=== PATIENT | female | born 2000 | race Caucasian/White ===

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

== ENCOUNTER 2020-05-28 22:33 | Emergency (ER) | payer OTHER ==
[~2020-05-28] VITALS: Ht 167 cm; Wt 75.0 kg
[~2020-05-28 22:33] MED LIST changes: +ACYC400T PO; +DOCU100C37 PO; +FERR325T18 PO; +IBUP-844 PO; +PREN1TAB79 PO
[2020-05-28 23:05] LABS: HEMOGLOBIN 14.7 g/dL (11.5-16.0); MEAN PLATELET VOLUME 9.5 fL (9.0-12.2); WHITE BLOOD COUNT 7.6 10^3/uL (4.3-11.0)
[2020-05-28 23:09] LABS: ALBUMIN 4.6 GM/DL (3.2-4.5); CHLORIDE 106 MMOL/L (98-107); POTASSIUM 3.5 MMOL/L (3.6-5.0); SODIUM 139 MMOL/L (135-145)
[2020-05-28 23:10] LABS: CALCIUM 9.5 MG/DL (8.5-10.1)
[2020-05-28 23:11] LABS: GLUCOSE 93 MG/DL (70-105)
[2020-05-28 23:12] LABS: CARBON DIOXIDE 22 MMOL/L (21-32); TOTAL PROTEIN 8.1 GM/DL (6.4-8.2)
[2020-05-28 23:13] LABS: BILIRUBIN,TOTAL 0.5 MG/DL (0.1-1.0)
[2020-05-28 23:15] LABS: ALKALINE PHOSPHATASE 64 U/L (40-136); CREATININE SERUM 0.93 MG/DL (0.60-1.30); GFR ESTIMATED > 60
[2020-05-28 23:16] LABS: BUN/CREATININE RATIO 9
[2020-05-28 23:17] LABS: BILIRUBIN,DIRECT 0.2 MG/DL (0.0-0.3); BILIRUBIN,INDIRECT 0.3 MG/DL
[2020-05-28 23:18] LABS: ALANINE AMINOTRANSFERASE 16 U/L (0-55)
--- NOTE | 2020-05-28 23:24 | NUR ---
PT RESTING QUIETLY, NO C/O VOICED.
--- NOTE | 2020-05-28 23:34 | NUR ---
AILEEN NUNEZ DEPUTY HERE TO TALK W/ PT
[2020-05-29] MEDS ORDERED: KETOROLAC 30 MG/ML VIAL IVP STA (00:03)
[2020-05-29] MEDS ORDERED: KETOROLAC 30 MG/ML VIAL ONE (00:05)
[2020-05-29 00:16] LABS: BILIRUBIN,URINE NEGATIVE (NEGATIVE); CLARITY,URINE CLEAR; COLOR,URINE YELLOW; GLUCOSE, URINE (UA) NEGATIVE (NEGATIVE); KETONES,URINE NEGATIVE (NEGATIVE); LEUKOCYTE ESTERASE ,URINE NEGATIVE (NEGATIVE); NITRITE,URINE NEGATIVE (NEGATIVE); PROTEIN,URINE NEGATIVE (NEGATIVE)
[2020-05-29 00:24] LABS: RBC,URINE 0-2 /HPF
[2020-05-29 00:26] LABS: BACTERIA,URINE LARGE /HPF
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
[2020-05-29 00:34] VITALS: BP 125/72
--- NOTE | 2020-05-29 00:34 | NUR ---
PT DISCHARGED TO HOME W/ INSTR. PT TO F/U W/ PCP ET RETURN IF SYMPTOMS CHANGE OR GET WROSE. UNDERSTANDING VOICED.
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
== END 2020-05-29 00:34 | disposition home or self-care (01) ==
LOC: EDUNIT# 22:34 → ER 22:35
DX: S80.02XA Contusion of left knee, initial encounter (principal); S60.511A Abrasion of right hand, initial encounter; S09.90XA Unspecified injury of head, initial encounter; Z83.3 Family history of diabetes mellitus; V89.2XXA Person injured in unspecified motor-vehicle accident, traffic, initial encounter
CPT/HCPCS: 70450; 71045; 72125; 80048; 80076; 81000; 84703; 85027; 86850; 86900; 86901; 87077; 87088; 99284; G0480; 36415; 80320

== ENCOUNTER 2020-09-30 17:41 | Emergency (ER) | payer OTHER ==
[~2020-09-30] VITALS: Ht 165.1 cm; Wt 79.4 kg
[2020-09-30 19:01] LABS: BASOPHILS % (AUTO) 0 % (0-10); EOSINOPHILS # (AUTO) 0.1 10^3/uL (0.0-0.3); EOSINOPHILS % (AUTO) 1 % (0-10); HEMATOCRIT 40 % (35-52); HEMOGLOBIN 13.6 g/dL (11.5-16.0); LYMPHOCYTES # (AUTO) 1.9 10^3/uL (1.0-4.0); LYMPHOCYTES % (AUTO) 20 % (12-44); MEAN CORPUSCULAR HEMOGLOBIN 29 pg (25-34); MEAN CORPUSCULAR HGB CONC 34 g/dL (32-36); MEAN CORPUSCULAR VOLUME 83 fL (80-99); MEAN PLATELET VOLUME 9.2 fL (9.0-12.2); MONOCYTES # (AUTO) 0.7 10^3/uL (0.0-1.0); MONOCYTES % (AUTO) 7 % (0-12); NEUTROPHILS # (AUTO) 6.7 10^3/uL (1.8-7.8); NEUTROPHILS % (AUTO) 71 % (42-75); PLATELET COUNT 263 10^3/uL (130-400); WHITE BLOOD COUNT 9.4 10^3/uL (4.3-11.0)
[2020-09-30 19:10] LABS: ALBUMIN 3.9 GM/DL (3.2-4.5); CHLORIDE 106 MMOL/L (98-107); POTASSIUM 3.7 MMOL/L (3.6-5.0); SODIUM 135 MMOL/L (135-145)
[2020-09-30 19:11] LABS: CALCIUM 9.4 MG/DL (8.5-10.1)
[2020-09-30 19:11] LABS: BILIRUBIN,URINE NEGATIVE (NEGATIVE); CLARITY,URINE CLEAR; COLOR,URINE YELLOW; GLUCOSE, URINE (UA) NEGATIVE (NEGATIVE); KETONES,URINE NEGATIVE (NEGATIVE); LEUKOCYTE ESTERASE ,URINE TRACE (NEGATIVE); NITRITE,URINE NEGATIVE (NEGATIVE); PROTEIN,URINE NEGATIVE (NEGATIVE)
[2020-09-30 19:12] LABS: GLUCOSE 85 MG/DL (70-105); TOTAL PROTEIN 7.3 GM/DL (6.4-8.2)
[2020-09-30 19:13] LABS: CARBON DIOXIDE 21 MMOL/L (21-32)
[2020-09-30 19:14] LABS: BILIRUBIN,TOTAL 0.3 MG/DL (0.1-1.0)
[2020-09-30 19:16] LABS: ALKALINE PHOSPHATASE 47 U/L (40-136); CREATININE SERUM 0.74 MG/DL (0.60-1.30); GFR ESTIMATED > 60
[2020-09-30 19:17] LABS: BUN/CREATININE RATIO 8
--- NOTE | 2020-09-30 19:18 | ED GU-Female ---
General Chief Complaint: OB < 20 WEEKS Stated Complaint: BLEEDING; 10 WKS PRGT Nursing Triage Note: PT AMB TO TRIAGE WITH COMPLAINT OF VAGINAL BLEEDING AND LIGHT CRAMPING THAT STARTED TODAY. PT IS APPROX 10 WEEKS . LMP 07/17/2020. STATES IS WITH TWINS THAT WAS CONFIRMED BY DR VELÁZQUEZ AND WAS REFERRED ON TO DR RICO BUT HAS NOT SEEN HIM IN OFFICE. Nursing Sepsis Screen: No Definite Risk Source: patient Exam Limitations: no limitations History of Present Illness Date Seen by Provider: Sep 30, 2020 Time Seen by Provider: 18:24 Initial Comments 20-year-old female who presents to the emergency room with complaints of light vaginal bleeding with some pelvic cramping that started today. The patient is approximately 10 weeks and her last menstrual period was 07/17/2020. She reports that she is with twins and has referral into Dr. RICO but has not been to see him in office. She reports that she has not saturated a pad all day long and compared this to a light period. Timing/Duration: this afternoon Severity/Quality: cramping Associated Symptoms: denies symptoms Allergies and Home Medications Allergies Coded Allergies: No Known Drug Allergies (Unverified , 08/13/19) Home Medications Docusate Sodium 100 Mg Capsule, 100 MG PO BID Prescribed by: DEBBIE VELÁZQUEZ on 08/14/19 1237 Ferrous Sulfate 325 Mg Tablet, 325 MG PO DAILY@0700 Prescribed by: DEBBIE VELÁZQUEZ on 08/14/19 1237 Ibuprofen 600 Mg Tablet, 600 MG PO Q6HR PRN for PAIN-MODERATE (5-7) Prescribed by: DEBBIE VELÁZQUEZ on 08/14/19 1237 Vit W-Ca,Fe,FA(<1 mg) 1 Each Tablet, 1 EACH PO DAILY, (Reported) Patient Home Medication List Home Medication List Reviewed: Yes Review of Systems Review of Systems Constitutional: see HPI; No chills, No fever Genitourinary: see HPI, pain (Pelvic pain), other (Vaginal bleeding) : Yes LMP: Jul 24, 2020 All Other Systemes Reviewed Negative Unless Noted: Yes Past Mpzywsn-Nbzytc-Tgghzt Hx Past Med/Social Hx: Reviewed Nursing Past Med/Soc Hx Patient Social History Alcohol Use: Denies Use Smoking Status: Never a Smoker 2nd Hand Smoke Exposure: No Recent Infectious Disease Expo: No Recent Hopitalizations: No Immunizations Up To Date Tetanus Booster (TDap): Less than 5yrs PED Vaccines UTD: Yes Date of Influenza Vaccine: May 11, 2019 Seasonal Allergies Seasonal Allergies: No Past Medical History Surgeries: No Respiratory: No Cardiac: No Neurological: No Hx : 2 Hx Para: 1 Female Reproductive Disorders: Denies Sexually Transmitted Disease: Yes (herpes) HIV/AIDS: No Genitourinary: No Gastrointestinal: No Musculoskeletal: No Endocrine: No HEENT: No Cancer: No Psychosocial: No Integumentary: No Blood Disorders: No Adverse Reaction/Blood Tranf: No Family Medical History Reviewed Nursing Family Hx Diabetes mellitus 19 MOTHER No Pertinent Family Hx Physical Exam Vital Signs Vital Signs - First Documented 09/30/20 18:16 Temp 37.0 Pulse 83 Resp 16 B/P (MAP) 108/66 (80) Pulse Ox 97 O2 Delivery Room Air Capillary Refill : Less Than 3 Seconds Height, Weight, BMI Height: 5'5.00" Weight: 156lbs. oz. 70.928992ip; 29.00 BMI Method:Stated General Appearance: WD/WN, no apparent distress Cardiovascular: normal peripheral pulses, regular rate, rhythm, no edema, no gallop, no JVD, no murmur Respiratory: chest non-tender, lungs clear, normal breath sounds, no respiratory distress, no accessory muscle use, respiratory distress Gastrointestinal: normal bowel sounds, non tender, soft, no organomegaly, no pulsatile mass, abnormal bowel sounds Extremities: normal range of motion, non-tender, no pedal edema, no calf tenderness, normal capillary refill Neurologic/Psychiatric: alert, normal mood/affect, oriented x 3 Skin: normal color, warm/dry Lymphatic: no adenopathy Progress/Results/Core Measures Suspected Sepsis Recent Fever Within 48 Hours: No Infection Criteria Present: None New/Unexplained Altered Menta: No Sepsis Screen: No Definite Risk SIRS Temperature: Pulse: 83 Respiratory Rate: 16 Laboratory Tests 09/30/20 18:48: White Blood Count 9.4 Blood Pressure 108 /66 Mean: 80 Laboratory Tests 09/30/20 18:48: Creatinine 0.74, Platelet Count 263, Total Bilirubin 0.3 Results/Orders Lab Results Laboratory Tests Test 09/30/20 18:48 09/30/20 18:57 Range/Units White Blood Count 9.4 4.3-11.0 10^3/uL Red Blood Count 4.77 3.80-5.11 10^6/uL Hemoglobin 13.6 11.5-16.0 g/dL Hematocrit 40 35-52 % Mean Corpuscular Volume 83 80-99 fL Mean Corpuscular Hemoglobin 29 25-34 pg Mean Corpuscular Hemoglobin Concent 34 32-36 g/dL Red Cell Distribution Width 13.2 10.0-14.5 % Platelet Count 263 130-400 10^3/uL Mean Platelet Volume 9.2 9.0-12.2 fL Immature Granulocyte % (Auto) 0 % Neutrophils (%) (Auto) 71 42-75 % Lymphocytes (%) (Auto) 20 12-44 % Monocytes (%) (Auto) 7 0-12 % Eosinophils (%) (Auto) 1 0-10 % Basophils (%) (Auto) 0 0-10 % Neutrophils # (Auto) 6.7 1.8-7.8 10^3/uL Lymphocytes # (Auto) 1.9 1.0-4.0 10^3/uL Monocytes # (Auto) 0.7 0.0-1.0 10^3/uL Eosinophils # (Auto) 0.1 0.0-0.3 10^3/uL Basophils # (Auto) 0.0 0.0-0.1 10^3/uL Immature Granulocyte # (Auto) 0.0 0.0-0.1 10^3/uL Sodium Level 135 135-145 MMOL/L Potassium Level 3.7 3.6-5.0 MMOL/L Chloride Level 106 98-107 MMOL/L Carbon Dioxide Level 21 21-32 MMOL/L Anion Gap 8 5-14 MMOL/L Blood Urea Nitrogen 6 L 7-18 MG/DL Creatinine 0.74 0.60-1.30 MG/DL Estimat Glomerular Filtration Rate > 60 BUN/Creatinine Ratio 8 Glucose Level 85 70-105 MG/DL Calcium Level 9.4 8.5-10.1 MG/DL Corrected Calcium 9.5 8.5-10.1 MG/DL Total Bilirubin 0.3 0.1-1.0 MG/DL Aspartate Amino Transf (AST/SGOT) 16 5-34 U/L Alanine Aminotransferase (ALT/SGPT) 17 0-55 U/L Alkaline Phosphatase 47 40-136 U/L Total Protein 7.3 6.4-8.2 GM/DL Albumin 3.9 3.2-4.5 GM/DL Urine Color YELLOW Urine Clarity CLEAR Urine pH 6.0 5-9 Urine Specific Letts 1.020 1.016-1.022 Urine Protein NEGATIVE NEGATIVE Urine Glucose (UA) NEGATIVE NEGATIVE Urine Ketones NEGATIVE NEGATIVE Urine Nitrite NEGATIVE NEGATIVE Urine Bilirubin NEGATIVE NEGATIVE Urine Urobilinogen 0.2 < = 1.0 MG/DL Urine Leukocyte Esterase TRACE H NEGATIVE Urine RBC (Auto) 2+ H NEGATIVE Urine RBC 0-2 /HPF Urine WBC 0-2 /HPF Urine Squamous Epithelial Cells 2-5 /HPF Urine Crystals NONE /LPF Urine Bacteria TRACE /HPF Urine Casts NONE /LPF Urine Mucus NEGATIVE /LPF Urine Culture Indicated NO My Orders Orders - TEMI RODRIGUEZ Cbc With Automated Diff (09/30/20 18:21) Hcg,Quantitative (09/30/20 18:21) Us Ob Single Fetus<14 [id number] (09/30/20 18:21) Ed Iv/Invasive Line Start (09/30/20 18:21) Comprehensive Metabolic Panel (09/30/20 18:21) Ua Culture If Indicated (09/30/20 18:54) Vital Signs/I&O 09/30/20 18:16 Temp 37.0 Pulse 83 Resp 16 B/P (MAP) 108/66 (80) Pulse Ox 97 O2 Delivery Room Air Capillary Refill : Less Than 3 Seconds Blood Pressure Mean: 80 Progress Note : Time: 19:36 Progress Note satellite tv technician installer reports normal heart rates of twins. Patient was informed of the need of strict pelvic rest. She agrees with plan of care, plans for discharge, return precautions were given. Departure Impression Primary Impression: , twins Additional Impression: Threatened miscarriage in early Disposition: 01 HOME, SELF-CARE Condition: Stable/Unchanged Departure-Patient Inst. Decision time for Depature: 19:33 Referrals: [facility] (PCP/Family) Primary Care Physician Patient Instructions: Having Twins, Bleeding In Early , Threatened Miscarriage (DC) Add. Discharge Instructions: Call first thing Saturday morning for an appointment time with Dr. RICO's office. Let them know that you were in the emergency room with vaginal bleeding. You need complete pelvic rest until cleared by your OB. Return back to the emergency room for worsening symptoms, or any other concerns as needed. All discharge instructions reviewed with patient and/or family. Voiced understanding. Copy Copies To 1: MANDI RICO DO Copies To 2: DEBBIE VELÁZQUEZ MD, TRAVIS Sep 30, 2020 19:18
[2020-09-30 19:19] LABS: BACTERIA,URINE TRACE /HPF; RBC,URINE 0-2 /HPF; WBC,URINE 0-2 /HPF
[2020-09-30 19:19] LABS: ALANINE AMINOTRANSFERASE 17 U/L (0-55)
--- NOTE | 2020-09-30 20:06 | Diagnostic Imaging Report ---
PROCEDURE: US OB single fetus <14 wks. TECHNIQUE: Multiple real-time grayscale images were obtained over the gravid uterus in various projections. INDICATION: Vaginal bleeding COMPARISON: None. FINDINGS: There is a twin gestation. The uterus appears normal in size given gestation. No masses are identified. The ovaries are normal in size, bilaterally. There is a 1.8 cm corpus luteal cyst in the left ovary. Vascularity appears normal. Baby A has a heart rate of 163 BPM. Dell-rump length measures 4.6 cm, consistent with 11 weeks and 3 days. The size and shape of the gestational sac is unremarkable. Baby B measures 4.8 cm, 11 weeks 4 days. The gestational sac appears normal in size and morphology. heart rate measures 169 BPM. There appears to be a fluid collection measuring 4.4 x 7.7 x 3.1 cm without vascularity anterior and to the left of baby B concerning for a large subchorionic hemorrhage. Involution of an old 3rd gestational sac is thought less likely. IMPRESSION: 1. Twin gestation. Baby A and baby B demonstrate normal heart rate. 2. Fluid collection anterior to baby B concerning for a large subchorionic hemorrhage. Dictated by: Dictated on workstation # [id number]
[2020-09-30 20:10] VITALS: BP 110/67
--- NOTE | 2020-10-03 15:58 | Diagnostic Imaging Report ---
INDICATION: Vaginal bleeding. TECHNIQUE: Multiple real-time grayscale images were obtained over the gravid uterus. COMPARISON: None. . FINDINGS/ IMPRESSION: Images for baby B are described in the concurrent separate report. Dictated by: Dictated on workstation # [id number]
== END 2020-09-30 20:11 | disposition home or self-care (01) ==
LOC: EDUNIT# 17:41 → ER 17:44
DX: O20.0 Threatened abortion (principal); Z3A.10 10 weeks gestation of pregnancy; Z83.3 Family history of diabetes mellitus
CPT/HCPCS: 36415; 76801; 76802; 76810; 80053; 81000; 84702; 85025

== ENCOUNTER → 2020-12-01 | Outpatient (CLI) | payer MEDICAID, OTHER ==
[~2020-12-01] MED LIST changes: -ACYC400T PO; +ACYC400T21 PO
--- NOTE | 2020-12-01 12:49 | Diagnostic Imaging Report ---
INDICATION: Twin gestation. TECHNIQUE: Multiple real-time grayscale images were obtained over the gravid uterus. COMPARISON: 09/30/2020. FINDINGS: Twin intrauterine is again demonstrated. Baby A: Currently in a cephalic presentation. Placenta is located anteriorly without evidence for previa. There appears to be normal amount of amniotic fluid. heart rate at 149 BPM. The kidneys, bladder, stomach, four-chamber heart, three-vessel cord, spine, and cord insertion site all appearing unremarkable. The intracranial structures are not well visualized. Baby B: Currently in a transverse orientation. Placenta is posterior. Normal amount of amniotic fluid. cardiac activity at 152 BPM. anatomic assessment demonstrates visualization of the kidneys, bladder, stomach, four-chamber heart, and three-vessel cord as well as cord insertion site which are appearing unremarkable. The intracranial structures as well as spine are not well visualized. Biometrical measurements are as follows: Biparietal 5.28 cm, age 22 weeks 1 days. Head circumference 18.32 cm, age 20 weeks 5 days. Abdominal circumference 15.25 cm, age 20 weeks 4 days. Femur length 3.29 cm, age 20 weeks 2 days. Sonographic estimate age: 21 weeks 0 days. Sonographic estimated date of delivery: 04/13/2021. Estimated Weight: 356 gm (+/- 52 gm). LMP percentile: 91%. heart rate: 149 beats per minute. number: 1 of 2. Cervical length at approximately 5.5 cm. IMPRESSION: 1. Twin intrauterine . 2. Baby A is currently in cephalic presentation with sonographic estimated age at 21 weeks 0 days for an estimated date of delivery of 04/13/2021. Estimated weight at the 20th percentile. 2. Baby B is currently in a transverse orientation, sonographic estimated age at 20 weeks 1 day for an estimated date of delivery of April 19, 2021. Estimated weight at the 23rd percentile. 4. Portions of the anatomy of both fetuses are currently incompletely assessed owing to positioning. This includes the intracranial structures of both fetuses as well as spine of baby B. Dictated by: Dictated on workstation # [id number]
== END ==
LOC: RAD 09:45
PROVIDERS: ATTEND Obstetrics & Gynecology
DX: O30.042 Twin pregnancy, dichorionic/diamniotic, second trimester (principal); Z3A.21 21 weeks gestation of pregnancy
CPT/HCPCS: 76805; 76810

== ENCOUNTER → 2021-03-29 | Outpatient (CLI) | payer MEDICAID ==
--- NOTE | 2021-03-29 17:13 | Diagnostic Imaging Report ---
INDICATION: Twin . TECHNIQUE: Multiple real-time grayscale images were obtained over the gravid uterus. COMPARISON: None. FINDINGS: There are twin gestations present. Baby A is cephalic receiving a normal 8/8 biophysical profile and is eccentric to the right. Its amniotic fluid index is 7.8. The placenta is anterior. No abruption or previa. Heart rate is 152 BPM. Baby A is first presenting gestation. Baby B is also cephalic and more eccentric to the left with amniotic fluid index of 9.8. Its placenta is posterior with a regular heart rate at 163 BPM. Baby B is with normal 8/8 biophysical profile. Biometrical measurements are as follows: Biparietal 9.21 cm, age 37 weeks 3 days. Head circumference 34.11 cm, age 39 weeks 2 days. Abdominal circumference 32.31 cm, age 36 weeks 2 days. Femur length 7.10 cm, age 36 weeks 3 days. Sonographic estimate age: 37 weeks 3 days. Sonographic estimated date of delivery: 04/16/2021. Estimated Weight: 3015 gm (+/- 440 gm). LMP percentile: 62%. heart rate: 152 beats per minute. number: 1 of 2. IMPRESSION: Cephalic-positioned twin viable IUPs, each receiving a normal 8/8 biophysical profile score. Dictated by: Dictated on workstation # [id number]
== END ==
LOC: RAD 11:47
PROVIDERS: ATTEND Nurse Practitioner Women's Health
DX: O30.043 Twin pregnancy, dichorionic/diamniotic, third trimester (principal); Z3A.00 Weeks of gestation of pregnancy not specified
CPT/HCPCS: 76805; 76810; 76819

== ENCOUNTER → 2021-03-29 | Outpatient (CLI) | payer MEDICAID | LOC: LABNPT 12:29 | PROVIDERS: ATTEND Obstetrics & Gynecology | DX: R80.9 Proteinuria, unspecified (principal) | CPT/HCPCS: 82570; 84156 ==

== ENCOUNTER → 2021-03-29 | Outpatient (CLI) | payer MEDICAID ==
[~2021-03-29] MED LIST changes: +ACHD5005 PO; +DOCU-239 PO
== END ==
LOC: RAD 11:39
DX: Z53.9 Procedure and treatment not carried out, unspecified reason (principal)

== ENCOUNTER 2021-04-05 11:32 | Inpatient (IN) | payer MEDICAID ==
[~2021-04-05] VITALS: Ht 167 cm; Wt 78.0 kg
[2021-04-05] VITALS (11 sets, daily range): BP systolic 104–134; BP diastolic 60–75
[~2021-04-05 11:32] MED LIST changes: -ACHD5005 PO; -DOCU-239 PO
[2021-04-05] MEDS ORDERED: FAMOTIDINE 20MG/2ML IV (PEPCID) IV ONE (11:45)
[2021-04-05] MEDS ORDERED: LACTATED RINGERS 1,000 ML IV PRN ×2 (11:45)
[2021-04-05] MEDS ORDERED: CITRIC ACID/SOB CIT (BICITRA) 30 ML UDC PO ONE (11:45)
[2021-04-05] MEDS ORDERED: CATHETER FLUSH 10 ML SYR IV PRN (11:45)
[2021-04-05] MEDS ORDERED: METOCLOPRAMIDE INJ 10 MG/2 ML (REGLAN) IV ONE (11:45)
[2021-04-05] MEDS ORDERED: OXYTOCIN PRE-MIX DRIP 1,000 ML IV ONE (11:46)
[2021-04-05] MEDS ORDERED: ONDANSETRON 4 MG/2 ML (SDV) Z0FRAN ONE (11:46)
[2021-04-05] MEDS ORDERED: KETOROLAC 30 MG/ML VIAL ONE (11:46)
[2021-04-05] MEDS ORDERED: fentaNYL INJ 100 MCG/2 ML AMP ONE (11:46)
[2021-04-05 11:47] LABS: BASOPHILS # (AUTO) 0.1 10^3/uL (0.0-0.1); BASOPHILS % (AUTO) 1 % (0-10); EOSINOPHILS # (AUTO) 0.1 10^3/uL (0.0-0.3); EOSINOPHILS % (AUTO) 1 % (0-10); HEMATOCRIT 39 % (35-52); HEMOGLOBIN 12.9 g/dL (11.5-16.0); LYMPHOCYTES # (AUTO) 2.1 10^3/uL (1.0-4.0); LYMPHOCYTES % (AUTO) 20 % (12-44); MEAN CORPUSCULAR HEMOGLOBIN 27 pg (25-34); MEAN CORPUSCULAR HGB CONC 33 g/dL (32-36); MEAN CORPUSCULAR VOLUME 83 fL (80-99); MEAN PLATELET VOLUME 10.3 fL (9.0-12.2); MONOCYTES # (AUTO) 0.6 10^3/uL (0.0-1.0); MONOCYTES % (AUTO) 6 % (0-12); NEUTROPHILS # (AUTO) 7.3 10^3/uL (1.8-7.8); NEUTROPHILS % (AUTO) 71 % (42-75); PLATELET COUNT 211 10^3/uL (130-400); WHITE BLOOD COUNT 10.2 10^3/uL (4.3-11.0)
[2021-04-05] MEDS ORDERED: ceFAZolin 2 GM IV Premixed 50 ML IV ONE (12:00)
[2021-04-05] MEDS ORDERED: ceFAZolin 2 GM IV Premixed 50 ML ONE (12:02)
--- NOTE | 2021-04-05 12:11 | History & Physical-OB ---
OB - Chief Complaint & HPI Date/Time Date of Admission: Date of Admission: Apr 05, 2021 at 11:32 Date seen by a Provider: Apr 05, 2021 Time Seen by a Provider: 11:55 Chief Complaint/History OB-Reason for Admission/Chief: Section Hx : 2 Hx Para: 1 Expected Date of Delivery: Apr 23, 2021 Gestational Age in Weeks: 37 Gestational Age in Days: 3 Indication for : malpresentation Admission Nurse Assessment Rev: Yes Allergies and Home Medications Allergies Coded Allergies: No Known Drug Allergies (Unverified , 08/13/19) Home Medications Docusate Sodium 100 Mg Capsule, 100 MG PO BID Prescribed by: DEBBIE VELÁZQUEZ on 08/14/19 1237 Ferrous Sulfate 325 Mg Tablet, 325 MG PO DAILY@0700 Prescribed by: DEBBIE VELÁZQUEZ on 08/14/19 1237 Ibuprofen 600 Mg Tablet, 600 MG PO Q6HR PRN for PAIN-MODERATE (5-7) Prescribed by: DEBBIE VELÁZQUEZ on 08/14/19 1237 Vit W-Ca,Fe,FA(<1 mg) 1 Each Tablet, 1 EACH PO DAILY, (Reported) Patient Home Medication List Home Medication List Reviewed: Yes OB - History Hx of Present Care: Yes Ultrasounds: Abnormal US findings (di-di twins) Obstetrical Complications: Gestational Diabetes, Other (Twins with B transverse) Medical Complications: None Delivery History Adverse Rxn to Tranfusion: No Patient Past Medical History PMHx: denies Social History/Family History 2nd Hand Smoke Exposure: No Immunizations Tetanus Booster (TDap): Less than 5yrs Date of Influenza Vaccine: May 11, 2019 OB - Admission Exam Physical Exam HEENT: NCAT Heart: Rhythm Normal Lungs: Clear Abdomen: Gravid Extremities: Normal Reflexes: Normal Heart Rate: 140's Accelerations: Accelerations Present Decelerations: No Decelerations Short Term Variability: Present Retirement Variability: Average (6-25) Contractions on Admission: >10 Minutes Apart Intensity: Mild Labs Laboratory Tests Test 04/05/21 11:30 Range/Units White Blood Count 10.2 4.3-11.0 10^3/uL Red Blood Count 4.76 3.80-5.11 10^6/uL Hemoglobin 12.9 11.5-16.0 g/dL Hematocrit 39 35-52 % Mean Corpuscular Volume 83 80-99 fL Mean Corpuscular Hemoglobin 27 25-34 pg Mean Corpuscular Hemoglobin Concent 33 32-36 g/dL Red Cell Distribution Width 13.3 10.0-14.5 % Platelet Count 211 130-400 10^3/uL Mean Platelet Volume 10.3 9.0-12.2 fL Immature Granulocyte % (Auto) 1 % Neutrophils (%) (Auto) 71 42-75 % Lymphocytes (%) (Auto) 20 12-44 % Monocytes (%) (Auto) 6 0-12 % Eosinophils (%) (Auto) 1 0-10 % Basophils (%) (Auto) 1 0-10 % Neutrophils # (Auto) 7.3 1.8-7.8 10^3/uL Lymphocytes # (Auto) 2.1 1.0-4.0 10^3/uL Monocytes # (Auto) 0.6 0.0-1.0 10^3/uL Eosinophils # (Auto) 0.1 0.0-0.3 10^3/uL Basophils # (Auto) 0.1 0.0-0.1 10^3/uL Immature Granulocyte # (Auto) 0.1 0.0-0.1 10^3/uL OB - Assessment/Plan/Diagnosis Assessment Assessment: section Admission Dx 20 yo @ 37 weeks Diamniotic dichorionic twin Malpresentation [id number] Admission Status: Inpatient Order (span 2 midnights) Reason for Inpatient Admission: Primary for twins at 37 weeks Plan Plan: Section MANDI RICO DO Apr 05, 2021 12:11
[2021-04-05] MEDS ORDERED: MEASLES,MUMPS,RUBELLA 1 EA INJ SC SCH (12:15)
[2021-04-05] MEDS ORDERED: ONDANSETRON 4 MG/2 ML (SDV) Z0FRAN IVP PRN (12:15)
[2021-04-05] MEDS ORDERED: NALOXONE 0.4 MG/ML 1 ML (NARCAN) VIAL IV PRN (12:15)
[2021-04-05] MEDS ORDERED: TETANUS,DIPTH,PERTUSS P/F (BOOSTRIX) 0.5 ML VIAL IM SCH (12:15)
[2021-04-05] MEDS ORDERED: BUPIVACAINE 0.25% 30 ML (SENSORCAINE) VIAL ONE (12:36)
[2021-04-05] MEDS ORDERED: PHENYLEPHRINE 100 MCG/ML 10 ML (ANESTHESIA) SYR ONE (12:38)
[2021-04-05] MEDS ORDERED: CATHETER FLUSH 10 ML SYR IV SCH (14:00)
[2021-04-05] MEDS: HYDROcodone/APAP 5 MG/325 MG (LORTAB) TAB PO PRN (18:17)
[2021-04-05] MEDS: KETOROLAC 30 MG/ML VIAL IV SCH (18:55)
--- NOTE | 2021-04-05 21:13 | OPERATIVE REPORT ---
DATE OF SERVICE: PREOPERATIVE DIAGNOSES: 1. A 20-year-old G2, P1 at 37 weeks and 3 days gestation. 2. Diamniotic dichorionic twin . 3. Gestational diabetes. 4. Malpresentation of twin B. POSTOPERATIVE DIAGNOSES: 1. A 20-year-old G2, P1 at 37 weeks and 3 days gestation. 2. Diamniotic dichorionic twin . 3. Gestational diabetes. 4. Malpresentation of twin B. PROCEDURE: Primary low transverse section. SURGEON: Kal Rico DO ENGINEERING TECHNICAL ANALYST: Jazzy Barajas DNP, was necessary for manipulation and retraction throughout the procedure. ANESTHESIA: Spinal. ESTIMATED BLOOD LOSS: 400 mL. URINE OUTPUT: 100 mL clear at the end of the procedure. FLUIDS: 1500 mL lactated Ringer's solution. FINDINGS: Two live females, baby A with a weight of 6 pounds 7 ounces, Apgars of 7 and 8. Baby B with a weight of 6 pounds 6 ounces and Apgars of 7 and 7. Grossly normal appearing uterus, bilateral fallopian tubes and ovaries. SPECIMEN SENT: Placenta. INDICATIONS FOR PROCEDURE: This 20-year-old female is a patient who had sought care in my office. Her care was complicated by gestational diabetes, which was well controlled with diet and compliance. It was also complicated by diamniotic dichorionic and malpresentation at the end of the . We discussed vaginal delivery and the possibility of needing a vaginal delivery and a versus the second twin converting to vertex. The patient just opted to proceed with as she did not want to deliver vaginal and then . Risks of the procedure were discussed with the patient in detail and after all her questions were answered, consent was obtained, the patient was taken to the operating room. OPERATIVE REPORT IN DETAIL: Once in the operating room, spinal analgesia was found to be adequate, placed in supine position with leftward tilt, prepped and draped in normal sterile fashion. Timeout was performed and anesthesia was tested. I then make a Pfannenstiel skin incision with a knife and carried down to underlying fascia using Bovie cautery. The fascial incision extended laterally using Bovie cautery. The superior aspect of fascial incision was then grasped with Jonah clamps, tented up and dissected off the underlying rectus muscles. The inferior aspect of the fascial incision was then grasped with Jonah clamps, tented up and dissected off the underlying rectus muscles. Rectus muscles were then dissected down the midline using Berkowitz scissors, which exposed the peritoneum, which I entered bluntly and extended using blunt traction. An Saulo ring retractor was placed in the peritoneal incision, which offers excellent lateral sidewall retraction. I then identified the lower uterine segment, which was found to be thinned out and make a low transverse incision to the vesicouterine peritoneum and bluntly dissected off the lower uterine segment, creating a bladder flap. I then proceeded with my myotomy until membranes were visualized, at which point I thinned uterine incision laterally and superiorly using bandage scissors. Amniotomy was performed, clear fluid was noted. Baby A was found in vertex presentation. Its head is elevated up the incision where the nares and oropharynx were bulb suctioned. Anterior and posterior shoulders were delivered. The infant was then brought to the operative field with cord doubly clamped and cut and was handed off to waiting nurses in attendance. That cord clamp was marked with 1 cord clamp. Amniotomy was then performed on the second sac, clear fluid was noted on this sac. That the infant was found in the left transverse presentation. The head was brought down to the incision where it delivered through the incision where the nares and oropharynx were bulb suctioned. Anterior and posterior shoulders were delivered. The infant was then brought to the operative field where the cord was doubly clamped and cut and infant was handed off to waiting nurses and physician in attendance. That cord was marked with 2 cord clamps. The placenta was then delivered spontaneously. IV Pitocin was initiated to facilitate uterine contraction. Uterine fundus confirmed by manual massage. Cord blood is collected from both cords and marked separately. The uterus was then exteriorized and cleared of endometrial clots and debris. I then proceeded with closing the uterine incision using 0 Vicryl suture in running locked fashion. Second layer of imbricating 0 Monocryl was placed. Excellent hemostasis was noted after doing this. I then placed the uterus back in the pelvis and copiously irrigate the pelvis using normal saline. No active bleeding noted from any of my dissection planes. I then placed Interceed antiadhesive over my low transverse incision. I removed the Saulo ring retractor and proceeded with closing the peritoneum using 3-0 Vicryl suture in running fashion. The rectus muscle reapproximated using 3-0 Vicryl suture in interrupted fashion. The fascia was reapproximated using 0 Vicryl suture in running fashion. Subcutaneous tissue was reapproximated using 3-0 plain interrupted subcutaneous stitch and skin reapproximated using 4-0 Monocryl running subcuticular. Dermabond was applied to incision and sterile dressing with adhesive white tape. The patient tolerated the procedure well and sent to recovery area in stable condition. Lap and sponge counts were correct at the end of the procedure. Instrument counts correct as well. Two grams of Ancef given preoperatively for infection prophylaxis. Job ID: [id number] DocumentID: [id number] Dictated Date: 04/05/2021 13:12:08 Button Maker Date: 04/05/2021 21:12:21 Dictated By: KAL RICO DO
[2021-04-06] MEDS: KETOROLAC 30 MG/ML VIAL IV SCH ×2 (00:45→06:47)
[2021-04-06] MEDS: DOCUSATE SODIUM 100 MG (COLACE) CAP PO SCH ×3 (00:46→21:47)
[2021-04-06 00:47] VITALS: BP 125/66
[2021-04-06 05:00] VITALS: BP 118/70
[2021-04-06 06:41] LABS: BASOPHILS % (AUTO) 0 % (0-10); EOSINOPHILS # (AUTO) 0.1 10^3/uL (0.0-0.3); EOSINOPHILS % (AUTO) 1 % (0-10); HEMATOCRIT 36 % (35-52); HEMOGLOBIN 11.5 g/dL (11.5-16.0); LYMPHOCYTES # (AUTO) 2.1 10^3/uL (1.0-4.0); LYMPHOCYTES % (AUTO) 21 % (12-44); MEAN CORPUSCULAR HEMOGLOBIN 27 pg (25-34); MEAN CORPUSCULAR HGB CONC 32 g/dL (32-36); MEAN CORPUSCULAR VOLUME 85 fL (80-99); MEAN PLATELET VOLUME 10.7 fL (9.0-12.2); MONOCYTES # (AUTO) 0.6 10^3/uL (0.0-1.0); MONOCYTES % (AUTO) 6 % (0-12); NEUTROPHILS # (AUTO) 7.2 10^3/uL (1.8-7.8); NEUTROPHILS % (AUTO) 71 % (42-75); PLATELET COUNT 175 10^3/uL (130-400); WHITE BLOOD COUNT 10.1 10^3/uL (4.3-11.0)
--- NOTE | 2021-04-06 07:20 | Anesthesia-Regional Post-Op ---
Regional Patient Condition Mental Status: Alert, Oriented x3 Circulation: Same as Pre-Op Headache: Absent Sensation: Full Recovery Motor Block: Absent Post Op Complications Complications None Follow Up Care/Instructions Patient Instructions None needed. Anesthesia/Patient Condition Patient is doing well, no complaints, stable vital signs, no apparent adverse anesthesia problems. No complications reported per nursing. ALIX JIMENEZ CRNA Apr 06, 2021 07:20
--- NOTE | 2021-04-06 07:55 | Postpartum Progress Note ---
DAYNE RICHEY 04/06/21 0755: Note Note Day # 1 Subjective: Patient is without complaints. Ambulating, urinating fine, passing flatus, no stool yet. Tolerating a regular diet without nausea or vomiting. Normal lochia. Pain is well controlled with oral pain medications. Bottle feeding. Patient notes minimal cramping, states it feels like "when you start your period". Objective: Laboratory Tests Test 04/05/21 11:30 04/06/21 05:43 04/06/21 05:59 Range/Units White Blood Count 10.2 10.1 4.3-11.0 10^3/uL Red Blood Count 4.76 4.20 3.80-5.11 10^6/uL Hemoglobin 12.9 11.5 11.5-16.0 g/dL Hematocrit 39 36 35-52 % Mean Corpuscular Volume 83 85 80-99 fL Mean Corpuscular Hemoglobin 27 27 25-34 pg Mean Corpuscular Hemoglobin Concent 33 32 32-36 g/dL Red Cell Distribution Width 13.3 13.6 10.0-14.5 % Platelet Count 211 175 130-400 10^3/uL Mean Platelet Volume 10.3 10.7 9.0-12.2 fL Immature Granulocyte % (Auto) 1 1 % Neutrophils (%) (Auto) 71 71 42-75 % Lymphocytes (%) (Auto) 20 21 12-44 % Monocytes (%) (Auto) 6 6 0-12 % Eosinophils (%) (Auto) 1 1 0-10 % Basophils (%) (Auto) 1 0 0-10 % Neutrophils # (Auto) 7.3 7.2 1.8-7.8 10^3/uL Lymphocytes # (Auto) 2.1 2.1 1.0-4.0 10^3/uL Monocytes # (Auto) 0.6 0.6 0.0-1.0 10^3/uL Eosinophils # (Auto) 0.1 0.1 0.0-0.3 10^3/uL Basophils # (Auto) 0.1 0.0 0.0-0.1 10^3/uL Immature Granulocyte # (Auto) 0.1 0.1 0.0-0.1 10^3/uL Glucometer 70 70-110 MG/DL Vital Signs 04/06/21 05:00 Temp 36.7 Pulse 62 Resp 20 B/P (MAP) 118/70 (86) Pulse Ox 99 O2 Delivery Room Air Physical Exam: General - Alert and oriented, no apparent distress Abdomen - Soft, appropriately tender to palpation, non-distended, fundus firm at umbilicus Extremities - no edema, negative Curt's bilaterally Incision - Clean, dry, intact, well approximated Lungs - CTAB Cardio - RRR no murmur, gallops, rubs Assessment: 37W D3 Post- day # 1, status post LTCS. Recovering well, hemodynamically stable anemia Plan: Routine care. Encourage breast feeding. Encourage ambulation. Ferrous sulfate supplementation. Continue pain management as needed Plan for discharge tomorrow Vitals - Labs Vital Signs - I&O Vital Signs Date Time Temp Pulse Resp B/P (MAP) Pulse Ox O2 Delivery O2 Flow Rate FiO2 04/06/21 05:00 36.7 62 20 118/70 (86) 99 Room Air 04/06/21 00:47 36.7 60 20 125/66 (85) 99 Room Air 04/05/21 20:35 37.0 67 18 129/69 (89) 97 Room Air 04/05/21 16:20 Room Air 04/05/21 16:00 37.0 67 18 125/60 (81) 98 Room Air 04/05/21 15:00 36.8 59 18 124/64 (84) 99 Room Air 04/05/21 14:20 36.5 63 18 133/65 (87) 99 Room Air 04/05/21 14:13 Room Air 04/05/21 14:10 36.2 20 116/69 (85) 100 Room Air 04/05/21 14:00 20 104/75 (85) 100 Room Air 04/05/21 13:50 20 117/69 (85) 99 Room Air 04/05/21 13:45 Room Air 04/05/21 13:40 20 116/67 (83) 99 Room Air 04/05/21 13:30 20 113/66 (82) 100 Room Air 04/05/21 13:17 36.3 20 115/72 (86) 100 Room Air 04/05/21 11:15 36.6 88 18 97 Room Air I & O 04/06/21 07:00 Intake Total 2650 ml Output Total 1000 ml Balance 1650 ml Labs Laboratory Tests 04/05/21 11:30: White Blood Count 10.2, Red Blood Count 4.76, Hemoglobin 12.9, Hematocrit 39, Mean Corpuscular Volume 83, Mean Corpuscular Hemoglobin 27, Mean Corpuscular Hemoglobin Concent 33, Red Cell Distribution Width 13.3, Platelet Count 211, Mean Platelet Volume 10.3, Immature Granulocyte % (Auto) 1, Neutrophils (%) (Auto) 71, Lymphocytes (%) (Auto) 20, Monocytes (%) (Auto) 6, Eosinophils (%) (Auto) 1, Basophils (%) (Auto) 1, Neutrophils # (Auto) 7.3, Lymphocytes # (Auto) 2.1, Monocytes # (Auto) 0.6, Eosinophils # (Auto) 0.1, Basophils # (Auto) 0.1, Immature Granulocyte # (Auto) 0.1 04/06/21 05:43: Glucometer 70 04/06/21 05:59: White Blood Count 10.1, Red Blood Count 4.20, Hemoglobin 11.5, Hematocrit 36, Mean Corpuscular Volume 85, Mean Corpuscular Hemoglobin 27, Mean Corpuscular Hemoglobin Concent 32, Red Cell Distribution Width 13.6, Platelet Count 175, Mean Platelet Volume 10.7, Immature Granulocyte % (Auto) 1, Neutrophils (%) (Auto) 71, Lymphocytes (%) (Auto) 21, Monocytes (%) (Auto) 6, Eosinophils (%) (Auto) 1, Basophils (%) (Auto) 0, Neutrophils # (Auto) 7.2, Lymphocytes # (Auto) 2.1, Monocytes # (Auto) 0.6, Eosinophils # (Auto) 0.1, Basophils # (Auto) 0.0, Immature Granulocyte # (Auto) 0.1 MANDI RICO DO 04/06/21 0811: DAYNE RICHEY Apr 06, 2021 07:55 MANDI RICO DO Apr 06, 2021 08:11
[2021-04-06 08:19] VITALS: BP 120/80
[2021-04-06] MEDS ORDERED: DCS100C PO (12:01)
[2021-04-06] MEDS ORDERED: IBUP-844 PO (12:01)
[2021-04-06] MEDS ORDERED: ACHD5005 PO (12:01)
--- NOTE | 2021-04-06 12:05 | Discharge Inst-Women's Service ---
Discharge Inst-Women's Serv Depart Medication/Instructions New, Converted or Re-Newed RX: RX on Chart Final Diagnosis POD 2 PLTCS Problems Reviewed?: Yes Consults/Follow Up Additional Follow Up: Yes Orders/Referrals Dr. Diaz in 7-10 days and in 6 weeks Activity Activity: Activity as Tolerated Driving Instructions: No Driving for 1 Week NO SMOKING: NO SMOKING Nothing Inside Vagina: No Douching, No [place], No Tampons Diet Discharge Diet: No Restrictions Symptoms to Report to : Bleeding Excessive, Pain Increased, Fever Over 101 Degrees F, Vaginal Bleeding Increase, Questions/Concerns For Any Problems or Questions: Contact Your Physician Skin/Wound Care Infection Signs and Symptoms: Increased Redness, Foul Odor of Wound, Increased Drainage, Skin Itchy or Has a Rash, Increased Swelling, Temperature Above 101 F Operative Area Clean and Dry: Keep Incision Clean/Dry Stitches/P[place]ock/Dermabond: Dermabond, Care of Stitches Bathing Instructions: MANDI Serrano DO Apr 06, 2021 12:05 pm
[2021-04-06 13:08] VITALS: BP 116/61
[2021-04-06] MEDS ORDERED: IBUPROFEN 600 MG (MOTRIN) TAB PO ONE (13:11)
[2021-04-06] MEDS: IBUPROFEN 600 MG (MOTRIN) TAB PO SCH ×3 (13:13→23:09)
[2021-04-06] MEDS: HYDROcodone/APAP 5 MG/325 MG (LORTAB) TAB PO PRN (13:13)
[2021-04-06 14:22] VITALS: BP 120/80
[2021-04-06 17:40] VITALS: BP 125/62
[2021-04-07 00:16] VITALS: BP 125/65
[2021-04-07] MEDS: IBUPROFEN 600 MG (MOTRIN) TAB PO SCH (05:34)
[2021-04-07 06:20] VITALS: BP 125/66
--- NOTE | 2021-04-07 10:12 | Postpartum Progress Note ---
Note Note Day # 2 Subjective: Patient is without complaints. Ambulating, voiding. Tolerating a regular diet without nausea or vomiting. Normal lochia. Pain is well controlled with oral pain medications. Objective: [] Physical Exam: General - Alert and oriented, no apparent distress Abdomen - Soft, appropriately tender to palpation, non-distended, fundus firm at umbilicus Extremities - no edema, negative Curt's bilaterally Assessment: Post- day # 2, status post PLTCS, twin delivery. Recovering well, hemodynamically stable Acute blood loss anemia Plan: Routine care. Encourage breast feeding. Encourage ambulation. Ferrous sulfate supplementation. Plan for discharge today Vitals - Labs Vital Signs - I&O Vital Signs Date Time Temp Pulse Resp B/P (MAP) Pulse Ox O2 Delivery O2 Flow Rate FiO2 04/07/21 06:20 36.6 79 16 125/66 (85) 98 Room Air 04/07/21 00:16 36.5 75 17 125/65 (85) 98 Room Air 04/06/21 17:40 36.4 64 18 125/62 (83) 98 Room Air 04/06/21 13:08 36.6 68 18 116/61 (79) 96 Room Air CIARRA MCKEON APRN Apr 07, 2021 10:12
== END 2021-04-07 12:25 | disposition home or self-care (01) | DRG 787 ==
LOC: LDRP 11:32 → WS 14:55
PROVIDERS: ADMIT Obstetrics & Gynecology; ATTEND Obstetrics & Gynecology
PROC: 10D00Z1 Extraction of Products of Conception, Low, Open Approach (ICD-10-PCS; principal; 2021-04-05 12:06)
DX: O30.043 Twin pregnancy, dichorionic/diamniotic, third trimester (principal); D62 Acute posthemorrhagic anemia; Z3A.37 37 weeks gestation of pregnancy; Z37.2 Twins, both liveborn; O24.429 Gestational diabetes mellitus in childbirth, unspecified control; O32.9XX2 Maternal care for malpresentation of fetus, unspecified, fetus 2; O90.81 Anemia of the puerperium
CPT/HCPCS: 36415; 82947; 85025; 86850; 86900; 86901; 94664